=== PATIENT | female | born 1960 | race Caucasian/White ===

== ENCOUNTER → 2021-02-20 06:51 | Outpatient (CLI) | payer BC, SELFPAY ==
[2021-02-20 23:43] LABS: SARS-CoV-2 RNA PCR Negative
== END ==
PROVIDERS: PCP Family Medicine; Visit Provider Physician Assistant
DX: Z20.822 Contact with and (suspected) exposure to COVID-19 (principal); R05 Cough
CPT/HCPCS: C9803; U0003; U0005

== ENCOUNTER 2021-03-16 12:06 | Outpatient (CLI) | payer BC, SELFPAY ==
--- NOTE | ~2021-03-16 | CT_ITS ---
EXAMINATION: CT abdomen pelvis w con DATE: 03/16/2021 13:00 INDICATION: Generalized abdominal pain. TECHNIQUE: Computed tomography (CT) of the abdomen and pelvis was performed with 100 mL Omnipaque 350 intravenous contrast. Automated exposure control and iterative reconstruction technique were employe d. The dose-length product was 618.21 mGy-cm. COMPARISON: None. FINDINGS: The visualized portions of the lung bases demonstrate mild atelectasis. A calcified right l hoa nodule is consistent with old granulomatous disease. No pleural effusion. The heart size is andrew l. No pericardial effusion. The liver, gallbladder, pancreas, and adrenal glands are normal. Calcific ations in the spleen are consistent with old granulomatous disease. The kidneys are normal. There are no dilated loops of bowel. The appendix is normal. There are no pathologically enlarged lymph nodes. There is no free intraperitoneal fluid. There is thoracolumbar dextroscoliosis and severe spondylosi s. IMPRESSION: 1. No etiology for the patient's symptoms. Reviewed, dictated and finalized at location B.
[2021-03-16 12:44] LABS: Estimated Glomerular Filt Rate 56
[2021-03-16 13:28] LABS: Hematocrit 44.9 % (37.0-47.0); Mean Corpuscular HGB Conc 33.4 g/dl (32-36); Mean Corpuscular Hemoglobin 29.7 pg (26-34); Mean Corpuscular Volume 88.9 fl (80-100); Mean Platelet Volume 10.1 fl (7.4-10.4); Platelet Count Result 384 k/mm3 (150-375); Red Blood Count 5.05 M/mm3 (4.2-5.4); Red Cell Distribution Width 13.2 % (11.5-14.5); White Blood Count 9.6 K/mm3 (4.5-10.0)
[2021-03-16 13:46] LABS: Alanine Aminotransferase 14 U/L (4-35); Albumin Level 4.5 g/dL (3.5-5.1); Alkaline Phosphatase 85 U/L (38-126); Anion Gap 6 mmol/L (8-16); Aspartate Amino Transferase 23 U/L (14-36); Bilirubin,Total 0.4 mg/dL (0.2-1.3); Blood Urea Nitrogen 12 mg/dL (7-17); Calcium 9.9 mg/dL (8.4-10.2); Carbon Dioxide 28 mmol/L (22-30); Chloride 102 mmol/L (98-107); Estimated Glomerular Filt Rate > 60; Glucose 102 mg/dL (65-105); Lipase 65 U/L (23-300); Sodium 136 mmol/L (137-145)
[2021-03-16 18:57] LABS: Potassium 4.5 mmol/L (3.4-5.0)
== END 2021-03-16 12:07 | disposition home or self-care (01) ==
PROVIDERS: PCP Family Medicine; Visit Provider Family Medicine
DX: R10.9 Unspecified abdominal pain (principal)
CPT/HCPCS: 74177; 80048; 80076; 83690; 85027; Q9967

== ENCOUNTER 2021-04-10 11:25 | Emergency (ER) | payer OTHER, BC, SELFPAY ==
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
[2021-04-10 11:34] VITALS: BP 143/69; PULSE 63; RESP 18; TEMP 36.7; O2SAT 100
== END 2021-04-10 12:34 | disposition home or self-care (01) ==
PROVIDERS: Emergency Provider Emergency Medicine; PCP Family Medicine
DX: S16.1XXA Strain of muscle, fascia and tendon at neck level, initial encounter (principal); F41.9 Anxiety disorder, unspecified; E78.5 Hyperlipidemia, unspecified; V89.2XXA Person injured in unspecified motor-vehicle accident, traffic, initial encounter
CPT/HCPCS: 70450; 72125; 99284

== ENCOUNTER → 2021-06-05 02:29 | Outpatient (CLI) | payer BC, SELFPAY ==
[2021-06-05 18:17] LABS: SARS-CoV-2 RNA PCR Negative
== END ==
PROVIDERS: PCP Family Medicine; Visit Provider Internal Medicine Gastroenterology
DX: Z01.812 Encounter for preprocedural laboratory examination (principal); Z20.822 Contact with and (suspected) exposure to COVID-19
CPT/HCPCS: C9803; U0003; U0005

== ENCOUNTER 2021-06-08 01:45 | Day surgery (SDC) | payer BC, SELFPAY ==
[2021-05-25 14:52] VITALS: BMI 28.8
[2021-06-08 06:18] VITALS: BP 125/64; PULSE 57; RESP 18; TEMP 36.4; O2SAT 99; BMI 28.3
[2021-06-08] MEDS: LACTATED RINGERS 1,000 ML 150 ML IV CONT (06:25)
--- NOTE | 2021-06-08 07:22 | PM.HPGS ---
History of Present Illness History of Present Illness Consent: Risks, benefits, and alternatives have been discussed and questions answered. Patient agrees to proceed with procedure. Chief complaint: epigastric pain Narrative: Shona Costa is a 60 year old female Who has had epigastric pain and nausea for about 4 months. This all began after she was treated for bronchitis. She had a similar issue a year or so ago when she had been placed on narcotics for treatment of pain after knee replacement. She also has had a great deal of nausea. Taking Nexium has given her some relief. Review of Systems Review of Systems: All systems reviewed & are unremarkable except as noted in HPI and below PMFSH Past Medical History Medical History Anxiety Chronic knee pain HLD (hyperlipidemia) Lumbar disc disease Surgical History Surgical History H/O: hysterectomy History of total left knee replacement (TKR) Family History Family History Other Family history of cardiovascular disease Family history of malignant neoplasm of ovary Social History Social History Smoking status: Never smoker Second hand tobacco smoke exposure: No Alcohol intake: never Substance use: never Substance use type: does not use Living arrangements: alone Gender identity (if verbalized by the patient): Female Spiritual care concerns: No Meds Home Medications and Allergies Home Medications Medication Instructions Recorded Confirmed Type esomeprazole magnesium [Nexium] 40 mg PO DAILY 04/10/21 05/25/21 History buspirone 10 mg tablet 10 mg PO TID 04/17/21 05/25/21 History dicyclomine 10 mg capsule 10 mg PO QID #90 cap 04/17/21 05/25/21 Rx gabapentin 600 mg tablet 600 mg PO DAILY 04/17/21 05/25/21 History polyethylene glycol 3350 17 17 g PO DAILY 04/17/21 05/25/21 History gram/dose oral powder psyllium 1 packet PO DAILY ea 04/17/21 05/25/21 History Allergies Allergy/AdvReac Type Severity Reaction Status Date / Time STEROID INJECTION AdvReac Mild HIVES Uncoded 06/08/21 06:16 Vital Signs Vital Signs - 24 hr 06/08/21 06:18 Temperature 36.4 C Pulse Rate 57 L Respiratory Rate 18 Blood Pressure 125/64 Pulse Oximetry 99 Exam Const: General: alert Orientation/consciousness: patient oriented x3 Resp: Auscultation: clear to auscultation bilaterally Cardio: Rhythm: regular rhythm GI: GI Palp: Yes Soft to palpation and No Tenderness to palpation present (GI) Neuro: General: patient oriented x3 Assessment and Plan Assessment and plan (1) Epigastric pain: Code(s): R10.13 - Epigastric pain Status: Acute Assessment and Plan: EGD with possible biopsy or dilatation or cautery.
--- NOTE | 2021-06-08 07:24 | WPDANESEPPF ---
Anes - Initial Pre Proc Eval Procedure: Operation Date: 06/08/21 07:30 Proposed Procedures p Esophagogastroduodenoscopy - Rajendra Jean MD Date/Time: 06/08/21 07:24 Surgeon: Rajendra Jean MD Pre Op Diagnosis: epigastric pain Patient Data Age: 60 Gender: F Height: 1.63 m Weight: 75 kg Last Vital Signs Temp 36.4 C 06/08/21 06:18 Pulse 57 L 06/08/21 06:18 Resp 18 06/08/21 06:18 BP 125/64 06/08/21 06:18 Pulse Ox 99 06/08/21 06:18 Allergies Allergy/AdvReac Type Severity Reaction Status Date / Time STEROID INJECTION AdvReac Mild HIVES Uncoded 06/08/21 06:16 Home Medications Medication Instructions Recorded Confirmed Type esomeprazole magnesium [Nexium] 40 mg PO DAILY 04/10/21 05/25/21 History buspirone 10 mg tablet 10 mg PO TID 04/17/21 05/25/21 History dicyclomine 10 mg capsule 10 mg PO QID #90 cap 04/17/21 05/25/21 Rx gabapentin 600 mg tablet 600 mg PO DAILY 04/17/21 05/25/21 History polyethylene glycol 3350 17 17 g PO DAILY 04/17/21 05/25/21 History gram/dose oral powder psyllium 1 packet PO DAILY ea 04/17/21 05/25/21 History Patient hx anesthesia problems: none Family hx anesthesia problems: none PMFSH Past Medical History Medical History Anxiety Chronic knee pain HLD (hyperlipidemia) Lumbar disc disease Surgical History Surgical History H/O: hysterectomy History of total left knee replacement (TKR) Family History Family History Other Family history of cardiovascular disease Family history of malignant neoplasm of ovary Social History Social History Smoking status: Never smoker Second hand tobacco smoke exposure: No Alcohol intake: never Substance use: never Substance use type: does not use Living arrangements: alone Gender identity (if verbalized by the patient): Female Spiritual care concerns: No Anes - Eval Final PreProcedure Day of Procedure 06/08/21 07:24 Patient weight: overweight Heart: regular rate and rhythm Lungs: clear to auscultation and normal air movement Airway: Mallampati scale class II Neurological: alert and oriented Last oral intake: >/= 8 hours ASA classification: II Emergent: no Anesthetic plan: proceed Anesthesia type and monitoring: general GIVS Informed Consent: The patient's anesthetic plan and its attendant risks and benefits were discussed with the patient/family/POA. Questions were solicited and answers provided to the satisfaction of the patient/family/POA.
[2021-06-08 07:45] VITALS: BP 128/75; PULSE 63; RESP 21; O2SAT 96
[2021-06-08 07:55] VITALS: BP 147/90; PULSE 58; RESP 18; O2SAT 95
--- NOTE | 2021-06-08 07:59 | SUR.PHASEII ---
H. Pylori test reads as positive. Dr. Jean made aware.
[2021-06-08 08:05] VITALS: BP 135/74; PULSE 61; RESP 20; O2SAT 98
== END 2021-06-08 08:24 | disposition home or self-care (01) ==
PROVIDERS: PCP Family Medicine; Visit Provider Internal Medicine Gastroenterology
PROC: 0DJ08ZZ Inspection of Upper Intestinal Tract, Via Natural or Artificial Opening Endoscopic (ICD-10-PCS; CPT 43235; principal; 2021-06-08 07:30)
DX: R10.13 Epigastric pain (principal); R11.0 Nausea; K21.9 Gastro-esophageal reflux disease without esophagitis; K29.00 Acute gastritis without bleeding; K29.50 Unspecified chronic gastritis without bleeding; F41.9 Anxiety disorder, unspecified; E78.5 Hyperlipidemia, unspecified; R11.2 Nausea with vomiting, unspecified
CPT/HCPCS: 43239; 87081; 88305; 88342; C9803; J2001; J2704; J7120; U0003; U0005

== ENCOUNTER 2021-06-10 16:28 | Emergency (ER) | payer BC, SELFPAY ==
[2021-06-10] VITALS (9 sets, daily range): BP systolic 128–148; BP diastolic 70–108; PULSE 69–96; RESP 16–29; TEMP 36.1; O2SAT 96–98
--- NOTE | ~2021-06-10 | XR_ITS ---
EXAMINATION: XR abdomen obstructive series DATE: 06/10/2021 20:21 INDICATION: Abdominal pain. Nausea and vomiting. TECHNIQUE: Upright and supine views of the abdomen on 4 radiographs were obtained. COMPARISON: CT abdomen and pelvis 03/16/2021 FINDINGS: There are no dilated loops of bowel. There is a paucity of stool in the colon. No free intr aperitoneal gas. IMPRESSION: 1. Normal bowel gas pattern. Reviewed, dictated and finalized at location A.
[2021-06-10 17:43] LABS: Basophils Absolute Auto 0.1 K/mm3 (0.0-0.1); Basophils Percent Auto 0.5 % (0.2-1.2); Eosinophils Percent Auto 0.3 % (0-4.4); Hemoglobin 15.1 g/dL (12.0-15.0); Immature Granulocyte Absolute 0.09 K/mm3 (0.00-0.031); Immature Granulocyte Percent A 0.8 % (0-0.5); Lymphocytes Percent Auto 10.6 % (18.3-44.2); Mean Corpuscular HGB Conc 33.6 g/dl (32-36); Mean Corpuscular Hemoglobin 29.1 pg (26-34); Mean Corpuscular Volume 86.7 fl (80-100); Mean Platelet Volume 9.9 fl (7.4-10.4); Monocytes Absolute Auto 0.6 K/mm3 (0.1-0.6); Monocytes Percent Auto 4.9 % (2.6-8.5); Neutrophils Absolute Auto 9.4 K/mm3 (1.3-6.7); Neutrophils Percent Auto 82.9 % (45.5-73.1); Platelet Count Result 438 k/mm3 (150-375); Red Blood Count 5.19 M/mm3 (4.2-5.4); Red Cell Distribution Width 13.9 % (11.5-14.5); White Blood Count 11.4 K/mm3 (4.5-10.0)
[2021-06-10 17:49] LABS: Alanine Aminotransferase 64 U/L (4-35); Albumin Level 4.8 g/dL (3.5-5.1); Alkaline Phosphatase 122 U/L (38-126); Anion Gap 10 mmol/L (8-16); Aspartate Amino Transferase 36 U/L (14-36); Bilirubin,Total 0.5 mg/dL (0.2-1.3); Blood Urea Nitrogen 9 mg/dL (7-17); Calcium 10.2 mg/dL (8.4-10.2); Carbon Dioxide 26 mmol/L (22-30); Chloride 102 mmol/L (98-107); Estimated CRCL calculation 57 ml/min; Estimated Glomerular Filt Rate > 60; Glucose 122 mg/dL (65-110); Lipase 104 U/L (23-300); Potassium 4.4 mmol/L (3.4-5.0); Sodium 138 mmol/L (137-145)
[2021-06-10 19:41] LABS: Add Urine Microscopic? NO; Appearance Urine Clear (Clear); Bilirubin Urine Negative (Negative); Blood Urine Negative (Negative); Color Urine Colorless (Yellow); Glucose Urine UA Negative (Negative); Ketones Urine Negative (Negative); Leukocyte Esterase Ur Negative LEU/UL (Negative); Nitrate Urine Negative (Negative); Protein Urine Negative (Negative); Urobilinogen Urine Negative mg/dL (<2.0)
[2021-06-10 19:42] LABS: Specific Grav Ur 1.003 (1.001-1.035)
--- NOTE | 2021-06-10 20:15 | ED.NAVMDI ---
HPI - Nausea/Vomiting/Diarrhea General Chief complaint: Nausea/Vomiting/Diarrhea Stated complaint: n/v due to new med for colitis Time Seen by Provider: 06/10/21 19:41 Source: patient Mode of arrival: ambulatory Limitations: no limitations History of Present Illness HPI Narrative: This is a 60 year old female that presents to the ER for nausea and vomiting today. Also reports a couple episodes of diarrhea. Reports abdominal bloating. She recently had an EGD with Dr. Jean and was started on clarithromycin and amoxicillin for H. pylori. Denies fever, melena, hematochezia, or dysuria. Related Data Home Medications Medication Instructions Recorded Confirmed esomeprazole magnesium [Nexium] 40 mg PO DAILY 04/10/21 05/25/21 buspirone 10 mg tablet 10 mg PO TID 04/17/21 05/25/21 gabapentin 600 mg tablet 600 mg PO DAILY 04/17/21 05/25/21 polyethylene glycol 3350 17 17 g PO DAILY 04/17/21 05/25/21 gram/dose oral powder psyllium 1 packet PO DAILY ea 04/17/21 05/25/21 Allergies Allergy/AdvReac Type Severity Reaction Status Date / Time STEROID INJECTION AdvReac Mild HIVES Uncoded 06/08/21 06:16 Review of Systems Review of Systems: CONSTITUTIONAL: Denies fever GASTROINTESTINAL: Reports abdominal pain, nausea, vomiting, and diarrhea. GENITOURINARY: Denies dysuria All systems reviewed & are unremarkable except as noted in HPI and below PMFSH Past Medical History Medical History Anxiety Chronic knee pain HLD (hyperlipidemia) Lumbar disc disease Surgical History Surgical History H/O: hysterectomy History of total left knee replacement (TKR) Family History Family History Other Family history of cardiovascular disease Family history of malignant neoplasm of ovary Social History Social History Smoking status: Never smoker Second hand tobacco smoke exposure: No Alcohol intake: never Substance use: never Substance use type: does not use Gender identity (if verbalized by the patient): Female Spiritual care concerns: No Exam Narrative: GENERAL: Well-appearing, well-nourished, and in no acute distress. HEAD: Normocephalic, atraumatic. EYES: EOMI. CHEST: Clear to auscultation. No respiratory distress. No wheezes rales or rhonchi HEART: Regular rate and rhythm. No murmur heard. Normal peripheral pulses. ABDOMEN: Soft, nontender, nondistended, normal active bowel sounds. No CVA tenderness EXTREMITIES: Normal range of motion. No edema. SKIN: Warm, dry, no rash. NEURO: No focal deficits. Alert and oriented x3. PSYCH: Normal mood and affect Course Vital Signs Vital signs: Vital Signs Temperature 97 F L 06/10/21 17:06 Pulse Rate 87 06/10/21 17:06 Respiratory Rate 18 06/10/21 17:06 Blood Pressure 131/108 H 06/10/21 17:06 Pulse Oximetry 98 06/10/21 17:06 Temperature 97 F L 06/10/21 17:06 Pulse Rate 87 06/10/21 17:06 Respiratory Rate 18 06/10/21 17:06 Blood Pressure 131/108 H 06/10/21 17:06 Pulse Oximetry 98 06/10/21 17:06 MDM - Nausea/Vomiting/Diarrhea MDM Narrative Medical decision making narrative: Patient presents to the emergency department for nausea, vomiting and diarrhea today. She is afebrile and nontoxic-appearing. Vitals are stable. Abdominal exam is benign. CBC with mild leukocytosis to 11.4. Also shows mild hemoconcentration. Patient hydrated with IV fluids in the ED. Metabolic panel with mild elevation in ALT to 64. Lipase is normal. UA is normal. Abdomen x-ray shows normal bowel gas pattern. No free intraperitoneal air. Patient updated on case findings. Able to tolerate p.o. challenge after antiemetics. 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 She recently had an EGD had has been started on antibiotics for H. pylori. Will be
[2021-06-10] MEDS: SODIUM CHLORIDE 0.9% IV 500 ML 999 ML IV CONT (20:38)
[2021-06-10] MEDS: ONDANSETRON INJ 4 MG/2 ML VIAL IV PUSH (20:38)
[2021-06-10] MEDS: diphenhydrAMINE HCl INJ 50 MG/ML VIAL 25 MG IV PUSH (21:49)
[2021-06-10] MEDS: METOCLOPRAMIDE HCL INJ 10 MG/2 ML VIAL IV PUSH (21:51)
[2021-06-10] MEDS: MECLIZINE HCL 25 MG TABLET PO (22:54)
== END 2021-06-10 23:15 | disposition home or self-care (01) ==
PROVIDERS: Emergency Provider Emergency Medicine; PCP Family Medicine
DX: R11.2 Nausea with vomiting, unspecified (principal); R19.7 Diarrhea, unspecified; F41.9 Anxiety disorder, unspecified; E78.5 Hyperlipidemia, unspecified
CPT/HCPCS: 36415; 74019; 80053; 81003; 83690; 85025; 96365; 96375; 99284; A9270; J0131; J1200; J2405; J2765; J7040

== ENCOUNTER → 2021-11-27 09:04 | Outpatient (CLI) | payer BC, SELFPAY ==
[2021-11-27 15:57] LABS: Influenza A QL RT-PCR Negative (Negative); Influenza B QL RT-PCR Negative (Negative); SARS-CoV-2 RNA PCR Positive
== END ==
PROVIDERS: PCP Family Medicine; Visit Provider Family Medicine
DX: R50.9 Fever, unspecified (principal); U07.1 COVID-19
CPT/HCPCS: 87502; C9803; U0003; U0005

== ENCOUNTER 2024-11-10 11:02 | Outpatient (CLI) | payer BC, SELFPAY ==
--- NOTE | ~2024-11-10 | XR_ITS ---
XR wrist RT 2V Ordering provider: Krupa Abbott PA-C History: . M25.531 - Pain in right wrist . Comparison: None. FINDINGS: BONES: No acute fracture or dislocation. No definite scaphoid fracture. Lucency is seen in the dista l ulna and distal radius. JOINT SPACES: Osteoarthritic changes of the joint between the scaphoid and trapezium and in the first carpometacarpal joint. SOFT TISSUES: Normal. IMPRESSION: No acute osseous abnormality right wrist. Lucencies with minimal cortical thickness in the distal ulna. Differential include multiple myeloma v ersus old fracture versus osteomyelitis. Follow-up and Clinical correlation. Reviewed, dictated and finalized at location A. [employer] IMPRESSION: No acute osseous abnormality right wrist. Lucencies with minimal cortical thickness in the distal ulna. Differential incl ude multiple myeloma versus old fracture versus osteomyelitis. Follow-up and Cl inical correlation.
== END 2024-11-10 11:03 | disposition home or self-care (01) ==
LOC: MICIMG 11:05
PROVIDERS: PCP Family Medicine; Visit Provider Student in an Organized Health Care Education/Training Program
DX: M25.831 Other specified joint disorders, right wrist (principal); M25.531 Pain in right wrist
CPT/HCPCS: 73100

== ENCOUNTER 2024-11-30 10:43 | Outpatient (CLI) | payer BC, SELFPAY ==
--- NOTE | ~2024-11-30 | MR_ITS ---
EXAMINATION: MR wrist RT wo con DATE: 11/30/2024 11:22 INDICATION: Right wrist pain TECHNIQUE: Magnetic resonance imaging (MRI) of the right wrist was performed without intravenous cont rast. Sequences performed include axial PD-weighted FSE and PD-weighted FS FSE, coronal PD-weighted F S FSE and T1-weighted SE, and sagittal PD-weighted FS FSE and PD-weighted FSE. COMPARISON: None FINDINGS: Intrinsic ligaments: The scapholunate and lunotriquetral ligaments are normal. Triangular fibrocartilage complex (TFCC): The triangular fibrocartilage including its foveal and styloid attachments as well as the dorsal and volar radioulnar ligaments are normal. The ulnar collateral ligament, ulnotriquetral ligament and men iscal homologue are normal. The extensor carpi ulnaris tendon sheath is normal. Extensor wrist: Extensor tendons of the wrist are normal. No tenosynovitis. Flexor wrist: The flexor tendons of the wrist are normal. No abnormality in the carpal tunnel with normal median n erve. Guyon's canal: Guyon's canal including the ulnar nerve and artery are normal. Bones/other: There are residual screw tracks from prior internal fixation along the distal ulnar metaphyseal and d iaphyseal regions foraminal fracture which is healed in near-anatomic alignment. There appears to be neutral to minimal dorsal tilt of the distal radial articular surface could be also consistent with s equela of an old healed fracture. No acute fractures or pathologic marrow replacing process. Polyarti cular osteoarthritis, severe at the triscaphe joint, moderate severity at the distal radioulnar joint and mild at the wrist, midcarpal and first carpal metacarpal joints. No erosions to suggest inflamma tory arthritis. There is a defect in the subcutaneous fat overlying the volar side of the distal radi al metadiaphyseal region which likely represents sequela of prior trauma or surgery. IMPRESSION: 1. Old healed distal right radial and ulnar fractures in near-anatomic alignment, the latter which ch anges of prior, since removed internal fixation. 2. Polyarticular osteoarthritis at the right hand and wrist, severe at the triscaphe joint, moderate at the distal radioulnar joint and otherwise mild. 3. Soft tissue defect with focal absence of subcutaneous fat underlying the marker positioned volar t o the distal radial metadiaphysis which likely represents sequela of prior trauma or surgery. Reviewed, dictated and finalized at location A. E MINER IMPRESSION: 1. Old healed distal right radial and ulnar fractures in near-anatomic alignmen t, the latter which changes of prior, since removed internal fixation. 2. Polyarticular osteoarthritis at the right hand and wrist, severe at the lisa caphe joint, moderate at the distal radioulnar joint and otherwise mild. 3. Soft tissue defect with focal absence of subcutaneous fat underlying the mar ker positioned volar to the distal radial metadiaphysis which likely represents sequela of prior trauma or surgery.
== END 2024-11-30 10:44 | disposition home or self-care (01) ==
LOC: MICIMG 10:44
PROVIDERS: PCP Family Medicine; Visit Provider Student in an Organized Health Care Education/Training Program
DX: M19.041 Primary osteoarthritis, right hand (principal); M19.031 Primary osteoarthritis, right wrist; Z98.890 Other specified postprocedural states
CPT/HCPCS: 73221